=== PATIENT | female | born 1980 ===

== ENCOUNTER 2016-11-28 07:41 | Inpatient (IN) | payer OTHER ==
[2016-11-28] VITALS (51 sets, daily range): BP systolic 111–135; BP diastolic 56–97; PULSE 61–96; TEMP 97.6–98.5
[~2016-11-28] VITALS: Ht 175.3 cm; Wt 104.5 kg
[2016-11-28] MEDS ORDERED: PROAIR HFA0.09 MG/AC IH (08:03)
[2016-11-28] MEDS ORDERED: PRENATAL1 TA7 PO (08:04)
[2016-11-28 09:31] LABS: BASO # 0.1 (0.0-0.2); BASO % 0.5 % (0.0-2.0); EOS # 0.1 (0.0-0.7); EOS % 1.2 % (0-4.0); GRAN # 8.1 (1.4-6.5); GRAN % 77.6 % (42.2-75.2); HEMATOCRIT 38.9 % (37.0-47.0); HEMOGLOBIN 13.2 g/dl (12.5-16.0); LYMPH # 1.5 (1.2-3.4); LYMPH % 14.3 % (20.0-51.0); MEAN CELL VOLUME 88 fl (80.0-100.0); MEAN CORPUSCULAR HEMOGLOBIN 30 pg (27.0-31.0); MEAN CORPUSCULAR HGB CONC 34 g/dl (33.0-37.0); MEAN PLATELET VOLUME 11.1 fl (7.4-10.4); MONO # 0.6 (0.1-0.6); MONO % 5.8 % (1.7-9.3); PLATELET COUNT 185 K/mm3 (130-400); RED BLOOD COUNT 4.44 M/mm3 (4.10-5.30); REDCELL DISTRIBUTION WIDTH-CV 14.6 % (11.5-14.5); WHITE BLOOD COUNT 10.4 K/mm3 (4.8-10.8)
[2016-11-29] VITALS (16 sets, daily range): BP systolic 110–160; BP diastolic 55–94; PULSE 67–107; TEMP 98.2–99.1
[2016-11-30 01:30] VITALS: BP 126/67; PULSE 86; TEMP 97.7
[2016-11-30 07:20] LABS: HEMATOCRIT 31.7 % (37.0-47.0); HEMOGLOBIN 10.6 g/dl (12.5-16.0)
[2016-11-30 07:30] VITALS: BP 109/67; PULSE 69; TEMP 97.9
[2016-11-30] MEDS ORDERED: MOTRIN 800800 MG/TAB PO (08:56)
[2016-11-30] MEDS ORDERED: PERCOCET 325 MG1 TA2 PO (08:57)
== END 2016-11-30 16:45 | disposition home or self-care (01) | DRG 775 ==
LOC: LDRO 07:41 → OB 08:09 → LDR 08:09 → OB 11-29 03:40
PROVIDERS: Obstetrics & Gynecology
PROC: 10E0XZZ Delivery of Products of Conception, External Approach (ICD-10-PCS; principal; 2016-11-29)
PROC: 0W8NXZZ Division of Female Perineum, External Approach (ICD-10-PCS; 2016-11-29)
DX: O48.0 Post-term pregnancy (principal); O36.0130 Maternal care for anti-D [Rh] antibodies, third trimester, not applicable or unspecified; O77.0 Labor and delivery complicated by meconium in amniotic fluid; Z3A.40 40 weeks gestation of pregnancy; Z37.0 Single live birth
CPT/HCPCS: J2590; J2791; J2795; J3010; J7120